=== PATIENT | male | born 1945 | race Caucasian/White ===

== ENCOUNTER 2016-11-25 16:26 | Inpatient (IN) | payer MEDICARE, MEDICAID ==
[~2016-11-25] VITALS: Ht 172.7 cm; Wt 64.9 kg
[~2016-11-25 16:26] MED LIST: ASPI81TA2 PO; COR3 PO; DOCU-138 PO; FURO80TA PO; GLIP5TAB12 PO; LISI2.5T47 PO; PANT40TA4 PO; PRAS10TA6 PO; SITA50TA3 PO
[2016-11-25] MEDS ORDERED: HYDROCODONE/ACETAMINOPHEN 5/325MG TABLET PO PRN (18:00)
[2016-11-25] MEDS ORDERED: ZOLPIDEM TARTRATE 5MG TABLET PO PRN (18:00)
[2016-11-25] MEDS ORDERED: CLONIDINE 0.1MG TABLET PO PRN (18:00)
[2016-11-25] MEDS ORDERED: ONDANSETRON HCL 4MG/2ML VIAL IV PRN (18:00)
[2016-11-25] MEDS ORDERED: ACETAMINOPHEN 325MG TABLET PO PRN (18:00)
[2016-11-25 18:32] VITALS: BP 123/79
[2016-11-25 18:47] VITALS: BP 123/79
[2016-11-25] MEDS ORDERED: DEXTROSE 50% WATER 50ML SYRINGE IV PRN ×2 (19:30)
[2016-11-25 20:00] VITALS: BP 119/80
[2016-11-25] MEDS: IPRATROPIUM/ALBUTEROL 0.5-3(2.5)MG/3ML NEB HHN SCH ×2 (20:47→23:33)
[2016-11-25] MEDS ORDERED: BLOOD SUGAR DIAGNOSTIC STRIP TEST SCH (21:00)
[2016-11-25] MEDS: BLOOD SUGAR DIAGNOSTIC STRIP TEST SCH (21:00)
[2016-11-25] MEDS: FUROSEMIDE 40MG TABLET PO SCH (22:23)
[2016-11-25] MEDS: CARVEDILOL 3.125 MG TABLET PO SCH (22:24)
[2016-11-25] MEDS: INSULIN LISPRO 100 UNITS/ML SUBCUT SCH (22:36)
[2016-11-25] MEDS: INSULIN DETEMIR UD 100 UNITS/ML SYR SUBCUT SCH (22:38)
[2016-11-26] MEDS: IPRATROPIUM/ALBUTEROL 0.5-3(2.5)MG/3ML NEB HHN SCH ×5 (03:19→21:29)
[2016-11-26] MEDS: INSULIN LISPRO 100 UNITS/ML SUBCUT SCH ×4 (06:10→22:23)
[2016-11-26] MEDS: BLOOD SUGAR DIAGNOSTIC STRIP TEST SCH ×4 (06:10→21:00)
[2016-11-26 07:07] LABS: BASOPHILS % 0.6 % (0.0-2.0); EOSINOPHILS % 3.2 % (0.0-5.0); HEMATOCRIT. 31.9 % (42.0-52.0); HEMOGLOBIN. 10.7 g/dL (14.0-18.0); LYMPHOCYTES % 17.8 % (20.0-50.0); MEAN CORPUSCULAR HEMOGLOBIN 26.8 pg (28.0-32.0); MEAN CORPUSCULAR HGB CONC 33.4 g/dL (31.0-37.0); MEAN CORPUSCULAR VOLUME 80.2 fL (80.0-94.0); MEAN PLATELET VOLUME 7.7 fl (7.4-10.4); MONOCYTES % 7.8 % (2.0-8.0); NEUTROPHILS % 70.6 % (40.0-76.0); PLATELET 236 x1000/uL (130-400); RED BLOOD CELL COUNT 3.98 mill/uL (4.7-6.1); RED CELL DISTRIBUTION WIDTH 14.6 % (11.6-14.6); WHITE BLOOD COUNT 5.2 x1000/uL (4.5-11.0)
[2016-11-26 08:00] VITALS: BP 122/77
[2016-11-26 08:06] LABS: ALBUMIN 2.4 g/dL (3.4-5.0); CALCIUM 8.4 mg/dL (8.5-10.1); CHLORIDE 101 mEq/L (98-107); INDEX HEMOLYSI 1 (1-3); INDEX ICTERIC 1 (1-4); INDEX LIPEMIC 1 (1-3)
[2016-11-26 08:11] LABS: ALANINE AMINOTRANSFERASE 13 IU/L (13-61); ANION GAP 11; CARBON DIOXIDE 27 mEq/L (21-32); PREALBUMIN 16.5 mg/dL (20.0-40.0); UREA NITROGEN BLOOD 35 mg/dL (7-21); eGFR 38 mL/min (>60)
[2016-11-26] MEDS: CLOPIDOGREL 75MG TABLET PO SCH (09:08)
[2016-11-26] MEDS: FAMOTIDINE 20MG TABLET PO SCH (09:08)
[2016-11-26] MEDS: ASPIRIN 81MG TABLET PO SCH (09:10)
[2016-11-26] MEDS: FUROSEMIDE 40MG TABLET PO SCH ×2 (09:10→22:16)
[2016-11-26] MEDS: DOCUSATE SODIUM 100MG CAPSULE PO SCH (09:10)
[2016-11-26] MEDS: CARVEDILOL 3.125 MG TABLET PO SCH ×2 (09:10→22:16)
[2016-11-26] MEDS: LISINOPRIL 2.5MG TABLET PO SCH (09:13)
[2016-11-26] MEDS: LACTULOSE 20G/30ML UDC PO PRN (12:24)
[2016-11-26] MEDS: INSULIN DETEMIR UD 100 UNITS/ML SYR SUBCUT SCH (22:24)
[2016-11-27] MEDS: IPRATROPIUM/ALBUTEROL 0.5-3(2.5)MG/3ML NEB HHN SCH ×6 (00:23→21:04)
[2016-11-27] MEDS: BLOOD SUGAR DIAGNOSTIC STRIP TEST SCH ×4 (05:49→21:06)
[2016-11-27] MEDS: INSULIN LISPRO 100 UNITS/ML SUBCUT SCH ×4 (06:21→21:12)
[2016-11-27 08:00] VITALS: BP 111/59
[2016-11-27] MEDS: ASCORBIC ACID 500 MG TABLET PO SCH (08:41)
[2016-11-27] MEDS: DOCUSATE SODIUM 100MG CAPSULE PO SCH (08:41)
[2016-11-27] MEDS: ASPIRIN 81MG TABLET PO SCH (08:41)
[2016-11-27] MEDS: FUROSEMIDE 40MG TABLET PO SCH ×2 (08:41→21:04)
[2016-11-27] MEDS: CLOPIDOGREL 75MG TABLET PO SCH (08:41)
[2016-11-27] MEDS: ZINC SULFATE 220 MG ( 50 ) CAPSULE PO SCH (08:41)
[2016-11-27] MEDS: CARVEDILOL 3.125 MG TABLET PO SCH ×2 (08:42→21:06)
[2016-11-27] MEDS: FAMOTIDINE 20MG TABLET PO SCH (08:42)
[2016-11-27] MEDS: POLYETHYLENE GLYCOL 3350 (17GM) 1 DOSE PACK PO SCH (08:43)
[2016-11-27] MEDS: LISINOPRIL 2.5MG TABLET PO SCH (09:00)
[2016-11-27 20:00] VITALS: BP 126/76
[2016-11-27] MEDS: INSULIN DETEMIR UD 100 UNITS/ML SYR SUBCUT SCH (21:14)
[2016-11-28] MEDS: IPRATROPIUM/ALBUTEROL 0.5-3(2.5)MG/3ML NEB HHN SCH ×6 (00:48→21:05)
[2016-11-28] MEDS: INSULIN LISPRO 100 UNITS/ML SUBCUT SCH ×4 (06:12→21:58)
[2016-11-28] MEDS: BLOOD SUGAR DIAGNOSTIC STRIP TEST SCH ×4 (06:12→21:58)
[2016-11-28 07:00] LABS: BASOPHILS % 0.5 % (0.0-2.0); EOSINOPHILS % 1.3 % (0.0-5.0); HEMOGLOBIN. 10.2 g/dL (14.0-18.0); LYMPHOCYTES % 18.5 % (20.0-50.0); MEAN CORPUSCULAR HEMOGLOBIN 26.6 pg (28.0-32.0); MEAN CORPUSCULAR HGB CONC 33.1 g/dL (31.0-37.0); MEAN CORPUSCULAR VOLUME 80.5 fL (80.0-94.0); MEAN PLATELET VOLUME 7.8 fl (7.4-10.4); MONOCYTES % 6.1 % (2.0-8.0); NEUTROPHILS % 73.6 % (40.0-76.0); PLATELET 303 x1000/uL (130-400); RED BLOOD CELL COUNT 3.85 mill/uL (4.7-6.1); RED CELL DISTRIBUTION WIDTH 14.5 % (11.6-14.6); WHITE BLOOD COUNT 7.4 x1000/uL (4.5-11.0)
[2016-11-28 07:59] LABS: CALCIUM 8.3 mg/dL (8.5-10.1); MAGNESIUM 2.1 mg/dL (1.8-2.4); PHOSPHORUS 3.3 mg/dL (2.5-4.9); THYROID STIMULATING HORMONE 4.7 uIU/mL (0.36-3.74)
[2016-11-28 08:00] VITALS: BP 116/76
[2016-11-28 08:07] LABS: FOLIC ACID (FOLATE) SERUM 15.5 ng/mL (>5.38)
[2016-11-28] MEDS: ASCORBIC ACID 500 MG TABLET PO SCH (09:55)
[2016-11-28] MEDS: CLOPIDOGREL 75MG TABLET PO SCH (09:55)
[2016-11-28] MEDS: CARVEDILOL 3.125 MG TABLET PO SCH ×2 (09:55→21:56)
[2016-11-28] MEDS: ZINC SULFATE 220 MG ( 50 ) CAPSULE PO SCH (09:55)
[2016-11-28] MEDS: ASPIRIN 81MG TABLET PO SCH (09:55)
[2016-11-28] MEDS: FAMOTIDINE 20MG TABLET PO SCH (09:55)
[2016-11-28] MEDS: DOCUSATE SODIUM 100MG CAPSULE PO SCH (09:55)
[2016-11-28] MEDS: LISINOPRIL 2.5MG TABLET PO SCH (09:55)
[2016-11-28] MEDS: FUROSEMIDE 40MG TABLET PO SCH ×2 (09:55→21:55)
[2016-11-28] MEDS: POLYETHYLENE GLYCOL 3350 (17GM) 1 DOSE PACK PO SCH (09:56)
[2016-11-28 20:00] VITALS: BP 117/72
[2016-11-28] MEDS: IRON SUCROSE COMPLEX 100 MG in SODIUM CHLORIDE 0.9% 100 ML IV SCH (21:55)
[2016-11-28] MEDS: INSULIN DETEMIR UD 100 UNITS/ML SYR SUBCUT SCH (21:57)
[2016-11-29] MEDS: IPRATROPIUM/ALBUTEROL 0.5-3(2.5)MG/3ML NEB HHN SCH ×6 (04:50→20:01)
[2016-11-29] MEDS: BLOOD SUGAR DIAGNOSTIC STRIP TEST SCH ×4 (06:49→21:45)
[2016-11-29] MEDS: INSULIN LISPRO 100 UNITS/ML SUBCUT SCH ×4 (06:49→21:44)
[2016-11-29 07:38] LABS: T3 FREE 1.58 pg/ml (2.18-3.98); T4 FREE 1.29 ng/dL (0.76-1.46)
[2016-11-29 08:00] VITALS: BP 110/58
[2016-11-29] MEDS: ASPIRIN 81MG TABLET PO SCH (08:26)
[2016-11-29] MEDS: CLOPIDOGREL 75MG TABLET PO SCH (08:26)
[2016-11-29] MEDS: DOCUSATE SODIUM 100MG CAPSULE PO SCH (08:26)
[2016-11-29] MEDS: FUROSEMIDE 40MG TABLET PO SCH ×2 (08:26→21:33)
[2016-11-29] MEDS: ASCORBIC ACID 500 MG TABLET PO SCH (08:26)
[2016-11-29] MEDS: LISINOPRIL 2.5MG TABLET PO SCH (08:26)
[2016-11-29] MEDS: ZINC SULFATE 220 MG ( 50 ) CAPSULE PO SCH (08:26)
[2016-11-29] MEDS: CARVEDILOL 3.125 MG TABLET PO SCH ×2 (08:26→21:33)
[2016-11-29] MEDS: FAMOTIDINE 20MG TABLET PO SCH (08:26)
[2016-11-29] MEDS: POLYETHYLENE GLYCOL 3350 (17GM) 1 DOSE PACK PO SCH (08:26)
[2016-11-29 20:00] VITALS: BP 116/70
[2016-11-29] MEDS: IRON SUCROSE COMPLEX 100 MG in SODIUM CHLORIDE 0.9% 100 ML IV SCH (21:33)
[2016-11-29] MEDS: INSULIN DETEMIR UD 100 UNITS/ML SYR SUBCUT SCH (21:45)
[2016-11-30] MEDS: IPRATROPIUM/ALBUTEROL 0.5-3(2.5)MG/3ML NEB HHN SCH ×4 (00:23→16:19)
[2016-11-30 06:31] LABS: BASOPHILS % 0.7 % (0.0-2.0); EOSINOPHILS % 1.5 % (0.0-5.0); HEMATOCRIT. 30.5 % (42.0-52.0); HEMOGLOBIN. 10.2 g/dL (14.0-18.0); LYMPHOCYTES % 24.7 % (20.0-50.0); MEAN CORPUSCULAR HEMOGLOBIN 27.1 pg (28.0-32.0); MEAN CORPUSCULAR HGB CONC 33.5 g/dL (31.0-37.0); MEAN CORPUSCULAR VOLUME 81.2 fL (80.0-94.0); MEAN PLATELET VOLUME 7.6 fl (7.4-10.4); MONOCYTES % 8.8 % (2.0-8.0); NEUTROPHILS % 64.3 % (40.0-76.0); PLATELET 326 x1000/uL (130-400); RED BLOOD CELL COUNT 3.75 mill/uL (4.7-6.1); RED CELL DISTRIBUTION WIDTH 15.1 % (11.6-14.6); WHITE BLOOD COUNT 6.7 x1000/uL (4.5-11.0)
[2016-11-30 07:05] LABS: CALCIUM 8.6 mg/dL (8.5-10.1)
[2016-11-30 08:00] VITALS: BP 128/76
[2016-11-30] MEDS: ASPIRIN 81MG TABLET PO SCH (08:38)
[2016-11-30] MEDS: DOCUSATE SODIUM 100MG CAPSULE PO SCH (08:38)
[2016-11-30] MEDS: FAMOTIDINE 20MG TABLET PO SCH (08:38)
[2016-11-30] MEDS: LISINOPRIL 2.5MG TABLET PO SCH (08:39)
[2016-11-30] MEDS: CLOPIDOGREL 75MG TABLET PO SCH (08:39)
[2016-11-30] MEDS: FUROSEMIDE 40MG TABLET PO SCH ×2 (08:39→21:22)
[2016-11-30] MEDS: ZINC SULFATE 220 MG ( 50 ) CAPSULE PO SCH (08:39)
[2016-11-30] MEDS: ASCORBIC ACID 500 MG TABLET PO SCH (08:39)
[2016-11-30] MEDS: CARVEDILOL 3.125 MG TABLET PO SCH ×2 (08:42→21:22)
[2016-11-30] MEDS: INSULIN LISPRO 100 UNITS/ML SUBCUT SCH ×4 (08:43→21:28)
[2016-11-30] MEDS: POLYETHYLENE GLYCOL 3350 (17GM) 1 DOSE PACK PO SCH (08:43)
[2016-11-30] MEDS: BLOOD SUGAR DIAGNOSTIC STRIP TEST SCH ×3 (11:29→21:23)
[2016-11-30 20:00] VITALS: BP 122/69
[2016-11-30] MEDS: IRON SUCROSE COMPLEX 100 MG in SODIUM CHLORIDE 0.9% 100 ML IV SCH (21:22)
[2016-11-30] MEDS: LACTULOSE 20G/30ML UDC PO PRN (21:23)
[2016-11-30] MEDS: INSULIN DETEMIR UD 100 UNITS/ML SYR SUBCUT SCH (21:28)
[2016-12-01] MEDS: IPRATROPIUM/ALBUTEROL 0.5-3(2.5)MG/3ML NEB HHN SCH ×6 (00:47→21:09)
[2016-12-01 06:10] LABS: BASOPHILS % 0.6 % (0.0-2.0); EOSINOPHILS % 1.8 % (0.0-5.0); HEMATOCRIT. 30.2 % (42.0-52.0); LYMPHOCYTES % 27.7 % (20.0-50.0); MEAN CORPUSCULAR HEMOGLOBIN 27.1 pg (28.0-32.0); MEAN PLATELET VOLUME 7.7 fl (7.4-10.4); MONOCYTES % 9.2 % (2.0-8.0); NEUTROPHILS % 60.7 % (40.0-76.0); PLATELET 303 x1000/uL (130-400); RED BLOOD CELL COUNT 3.68 mill/uL (4.7-6.1); RED CELL DISTRIBUTION WIDTH 15.1 % (11.6-14.6); WHITE BLOOD COUNT 5.5 x1000/uL (4.5-11.0)
[2016-12-01] MEDS: BLOOD SUGAR DIAGNOSTIC STRIP TEST SCH ×4 (06:23→21:57)
[2016-12-01] MEDS: INSULIN LISPRO 100 UNITS/ML SUBCUT SCH ×4 (06:23→22:06)
[2016-12-01 06:30] LABS: CALCIUM 8.6 mg/dL (8.5-10.1)
[2016-12-01 08:00] VITALS: BP 117/57
[2016-12-01] MEDS: FUROSEMIDE 40MG TABLET PO SCH (08:09)
[2016-12-01] MEDS: ASPIRIN 81MG TABLET PO SCH (08:09)
[2016-12-01] MEDS: ZINC SULFATE 220 MG ( 50 ) CAPSULE PO SCH (08:09)
[2016-12-01] MEDS: ASCORBIC ACID 500 MG TABLET PO SCH (08:10)
[2016-12-01] MEDS: FAMOTIDINE 20MG TABLET PO SCH (08:10)
[2016-12-01] MEDS: LISINOPRIL 2.5MG TABLET PO SCH (08:10)
[2016-12-01] MEDS: DOCUSATE SODIUM 100MG CAPSULE PO SCH (08:10)
[2016-12-01] MEDS: CLOPIDOGREL 75MG TABLET PO SCH (08:10)
[2016-12-01] MEDS: CARVEDILOL 3.125 MG TABLET PO SCH ×2 (08:13→21:57)
[2016-12-01] MEDS: POLYETHYLENE GLYCOL 3350 (17GM) 1 DOSE PACK PO SCH (08:13)
[2016-12-01] MEDS: METOLAZONE 5MG TABLET PO SCH (11:53)
[2016-12-01 20:00] VITALS: BP 127/70
[2016-12-01] MEDS: FUROSEMIDE 20MG TABLET PO SCH (21:56)
[2016-12-01] MEDS: IRON SUCROSE COMPLEX 100 MG in SODIUM CHLORIDE 0.9% 100 ML IV SCH (21:58)
[2016-12-01] MEDS: INSULIN DETEMIR UD 100 UNITS/ML SYR SUBCUT SCH (22:07)
[2016-12-02] MEDS: IPRATROPIUM/ALBUTEROL 0.5-3(2.5)MG/3ML NEB HHN SCH ×6 (00:27→19:50)
[2016-12-02] MEDS: BLOOD SUGAR DIAGNOSTIC STRIP TEST SCH ×4 (06:13→20:11)
[2016-12-02] MEDS: INSULIN LISPRO 100 UNITS/ML SUBCUT SCH ×4 (06:17→21:19)
[2016-12-02 07:49] LABS: CHLORIDE 97 mEq/L (98-107); INDEX HEMOLYSI 1 (1-3); INDEX ICTERIC 1 (1-4); INDEX LIPEMIC 1 (1-3)
[2016-12-02 08:00] VITALS: BP 115/70
[2016-12-02 08:11] LABS: ALANINE AMINOTRANSFERASE 16 IU/L (13-61); ANION GAP 15; CALCIUM 8.8 mg/dL (8.5-10.1); CARBON DIOXIDE 27 mEq/L (21-32); UREA NITROGEN BLOOD 47 mg/dL (7-21); eGFR 35 mL/min (>60)
[2016-12-02] MEDS: CARVEDILOL 3.125 MG TABLET PO SCH ×2 (08:37→21:14)
[2016-12-02] MEDS: POLYETHYLENE GLYCOL 3350 (17GM) 1 DOSE PACK PO SCH (08:37)
[2016-12-02] MEDS: ZINC SULFATE 220 MG ( 50 ) CAPSULE PO SCH (08:45)
[2016-12-02] MEDS: ASCORBIC ACID 500 MG TABLET PO SCH (08:45)
[2016-12-02] MEDS: DOCUSATE SODIUM 100MG CAPSULE PO SCH (08:45)
[2016-12-02] MEDS: CLOPIDOGREL 75MG TABLET PO SCH (08:46)
[2016-12-02] MEDS: ASPIRIN 81MG TABLET PO SCH (08:46)
[2016-12-02] MEDS: FUROSEMIDE 20MG TABLET PO SCH ×2 (08:46→20:11)
[2016-12-02] MEDS: LISINOPRIL 2.5MG TABLET PO SCH (08:46)
[2016-12-02] MEDS: FAMOTIDINE 20MG TABLET PO SCH (08:47)
[2016-12-02] MEDS: METOLAZONE 5MG TABLET PO SCH (08:47)
[2016-12-02] MEDS ORDERED: METOLAZONE 2.5MG TABLET PO SCH (09:00)
[2016-12-02 14:17] LABS: 25-HYDROXY VITAMIN D3 20 ng/mL (.)
[2016-12-02] MEDS: GLIPIZIDE 5MG TABLET PO SCH (17:04)
[2016-12-02 20:00] VITALS: BP 109/58
[2016-12-02] MEDS: IRON SUCROSE COMPLEX 100 MG in SODIUM CHLORIDE 0.9% 100 ML IV SCH (20:11)
[2016-12-02] MEDS: INSULIN DETEMIR UD 100 UNITS/ML SYR SUBCUT SCH (21:20)
[2016-12-03] MEDS: IPRATROPIUM/ALBUTEROL 0.5-3(2.5)MG/3ML NEB HHN SCH ×3 (00:13→07:35)
[2016-12-03] MEDS: LACTULOSE 20G/30ML UDC PO PRN (04:02)
[2016-12-03] MEDS: INSULIN LISPRO 100 UNITS/ML SUBCUT SCH ×2 (05:28→13:20)
[2016-12-03] MEDS: BLOOD SUGAR DIAGNOSTIC STRIP TEST SCH ×2 (05:28→11:53)
[2016-12-03 07:39] LABS: MAGNESIUM 2.3 mg/dL (1.8-2.4); PHOSPHORUS 4.2 mg/dL (2.5-4.9)
[2016-12-03 08:00] VITALS: BP 113/64
[2016-12-03] MEDS: CLOPIDOGREL 75MG TABLET PO SCH (08:30)
[2016-12-03] MEDS: ZINC SULFATE 220 MG ( 50 ) CAPSULE PO SCH (08:30)
[2016-12-03] MEDS: FAMOTIDINE 20MG TABLET PO SCH (08:30)
[2016-12-03] MEDS: DOCUSATE SODIUM 100MG CAPSULE PO SCH (08:30)
[2016-12-03] MEDS: ASPIRIN 81MG TABLET PO SCH (08:31)
[2016-12-03] MEDS: FUROSEMIDE 20MG TABLET PO SCH (08:32)
[2016-12-03] MEDS: ASCORBIC ACID 500 MG TABLET PO SCH (08:32)
[2016-12-03] MEDS: GLIPIZIDE 5MG TABLET PO SCH (08:32)
[2016-12-03] MEDS: METOLAZONE 5MG TABLET PO SCH (08:32)
[2016-12-03] MEDS: CARVEDILOL 3.125 MG TABLET PO SCH (08:33)
[2016-12-03] MEDS: POLYETHYLENE GLYCOL 3350 (17GM) 1 DOSE PACK PO SCH (08:33)
[2016-12-03] MEDS: LISINOPRIL 2.5MG TABLET PO SCH (08:34)
[2016-12-03 12:16] VITALS: BP 113/64
[2016-12-03] MEDS ORDERED: ERGOCALCIFEROL 50000UNITS CAPSULE PO SCH (13:00)
== END 2016-12-03 14:00 | disposition home health service (06) | DRG 291 ==
PROVIDERS: ADMIT Physical Medicine & Rehabilitation Spinal Cord Injury Medicine; ATTEND Internal Medicine
DX: I13.0 Hypertensive heart and chronic kidney disease with heart failure and stage 1 through stage 4 chronic kidney disease, or unspecified chronic kidney disease (principal); I50.23 Acute on chronic systolic (congestive) heart failure; J96.90 Respiratory failure, unspecified, unspecified whether with hypoxia or hypercapnia; E46 Unspecified protein-calorie malnutrition; N17.9 Acute kidney failure, unspecified; K92.2 Gastrointestinal hemorrhage, unspecified; D64.9 Anemia, unspecified; E11.22 Type 2 diabetes mellitus with diabetic chronic kidney disease; E78.5 Hyperlipidemia, unspecified; I25.10 Atherosclerotic heart disease of native coronary artery without angina pectoris; I25.5 Ischemic cardiomyopathy; E61.1 Iron deficiency; F06.31 Mood disorder due to known physiological condition with depressive features; N18.3 Chronic kidney disease, stage 3 (moderate); D69.6 Thrombocytopenia, unspecified; R94.6 Abnormal results of thyroid function studies; K59.00 Constipation, unspecified; Z86.73 Personal history of transient ischemic attack (TIA), and cerebral infarction without residual deficits; I25.2 Old myocardial infarction; Z79.899 Other long term (current) drug therapy; Z95.0 Presence of cardiac pacemaker; Z95.5 Presence of coronary angioplasty implant and graft; Z87.01 Personal history of pneumonia (recurrent); Z68.21 Body mass index [BMI] 21.0-21.9, adult
CPT/HCPCS: 36415; 80048; 80053; 80061; 82306; 82607; 82728; 82746; 82962; 83036; 83540; 83550; 83735; 84100; 84134; 84439; 84443; 84481; 84630; 85025; 93306; 93970; 94640; 97110; 97112; 97116; 97150; 97162; 97167; 97530; 97535; A6261; C1893; J1815; J7040; J7050; J7620